=== PATIENT | female | born 1960 | race Caucasian/White ===

== ENCOUNTER → 2019-08-28 11:27 | Outpatient (BNVA) | payer BC, SELFPAY | PROVIDERS: Visit Provider Family Medicine | DX: M25.50 Pain in unspecified joint (principal); K21.9 Gastro-esophageal reflux disease without esophagitis; J45.909 Unspecified asthma, uncomplicated; F41.9 Anxiety disorder, unspecified; L72.9 Follicular cyst of the skin and subcutaneous tissue, unspecified | CPT/HCPCS: 84550; 85651; 86038; 86431 ==

== ENCOUNTER 2019-09-12 09:18 | Day surgery (SDC) | payer BC, SELFPAY ==
[2019-09-11 13:28] VITALS: BMI 32.4
[2019-09-12 09:51] VITALS: BP 149/98; PULSE 85; RESP 18; TEMP 36.6; O2SAT 96
--- NOTE | 2019-09-12 09:53 | W.PM.OPSUD ---
Surgery/Procedure H&P Update DATE OF PROCEDURE: September 12, 2019 DATE H&P PERFORMED: 09/01/19 H&P UPDATE INFORMATION: I have reviewed H&P completed within last 30 days, I have examined patient prior to procedure and No changes to prior documentation PREOP DIAGNOSIS: Skin lesion x2, screening PLANNED PROCEDURE: Operation Date: 09/12/19 10:40 Proposed Procedures p Colonoscopy 77890 [id number] Z12.11 L72.3(Not Applicable) - Kenny Wolfe MD s Excision of sebaceous cyst right shoulder x2(Right) - Kenny Wolfe MD
--- NOTE | 2019-09-12 10:04 | ANES.PREANE2 ---
Pre-Anesthetic Assessment Pre-Anesthetic Assessment: Height/Weight: Height 1.68 m Weight 91.172 kg Temp Pulse Resp BP Pulse Ox 97.9 F 85 18 149/98 96 09/12/19 09:51 09/12/19 09:51 09/12/19 09:51 09/12/19 09:51 09/12/19 09:51 Preop Diagnosis: Skin lesion x2, screening Proposed Procedure: Operation Date: 09/12/19 10:40 Proposed Procedures p Colonoscopy 10044 27150 Z12.11 L72.3(Not Applicable) - Kenny Wolfe MD s Excision of sebaceous cyst right shoulder x2(Right) - Kenny Wolfe MD Last intake: Intake Last Liquid Date 09/11/19 Last Liquid Time 23:45 Last Solid Date 09/10/19 Last Solid Time 21:35 Social: Social History: Tobacco (quit 2002) and No alcohol Exam: Pre-Anes Outpt Exam: alert, oriented x 3, clear to auscultation bilaterally and regular rate & rhythm Airway: Submandibular: WNL Cervical ROM: WNL MP: 2 Dentition: Other (teeth ok) History/ROS: No significant history except as noted Pulmonary: Pulmonary: Asthma CV/HEM: CV/HEM: None reported : : None reported Hepatic: Hepatic: None reported GI: GI: GERD Metabolic: Metabolic: None reported Musc/skel: Musc/skel: None reported Neuropsych: Neuropsych: None reported Anesthetic Plan: ASA status: 3 Anesthesia: Anesthesia Evaluation and MAC Risk of > 500 ml blood loss (7ml/kg in children): No Other Pertinent Information: PONV PFSH Anesthesia PFSH: Medical History Asthma Gastroesophageal reflux disease Surgical History H/O neck surgery History of dilatation and curettage History of excision of pilonidal cyst History of tubal ligation Hx of appendectomy Family History Father Cancer multiple myloma Mother Hypertension CAD (coronary artery disease) Denies family history of Anesthesia complication Bleeding disorder Social History Smoking and tobacco status: never smoked Alcohol intake: never Data Anesthesia Cardiac Studies: No Data to Display
[2019-09-12] MEDS: scopolamine 1.5 Patch 1 PATCH TRANSDERMA (10:06)
[2019-09-12] MEDS: sodium chloride 0.9% 1,000 ML 30 ML IV (10:12)
[2019-09-12] MEDS: lidocaine 1% INJ 20 mL IM (10:48)
--- NOTE | 2019-09-12 11:09 | PM.OP ---
Operative Report Date of procedure: September 12, 2019 Pre-op Diagnosis: Skin lesion x2, screening Post-op Findings: Sebaceous cyst right shoulder Subcutaneous mass right arm normal colonoscopy, repeat screening colonoscopy in 10 years Procedure Done: Excision sebaceous cyst right shoulder Excision subcutaneous mass right arm Colonoscopy path splenic flexure without biopsy Implants: r Specimens removed/disposition: Subcutaneous mass right arm, sebaceous cyst right shoulde Surgeon: Kenny Wolfe Anesthesia: MAC Estimated blood loss (mL): 5 Condition: stable Disposition: same day Procedure: The patient was taken to the operating room and placed in left lateral position under MAC. The right arm and right shoulder was prepped and draped in sterile manner. 1% lidocaine with 0.5% Marcaine was infiltrated around the mass. Using 15 blade 1 cm incision was made and subcutaneous lipoma was dissected free from the surrounding subcutaneous tissue and sent to pathology. Subcutaneous tissue was approximated using interrupted 3-0 Vicryl suture and skin was closed using running subcuticular 4-0 Monocryl suture surgical glue. 3 cm transverse elliptical incision was made around the punctum of the sebaceous cyst on the right shoulder. Using 15 blade the cyst was dissected free from the surrounding subcutaneous tissue. Wound was irrigated saline, hemostasis ensured and subcutaneous tissues approximated using interrupted 3-0 Vicryl suture and skin was closed using running subcuticular 4-0 Monocryl suture and surgical glue. TASHIA: Normal The colonoscopy introduced and advanced at the cecum with ileocecal valve and the epiglottis was visualized. The colonoscopy slowly withdrawn. The colon prep was good cecum: Normal Ascending colon: Normal Transverse colon: Normal Descending colon: Normal Sigmoid colon: Normal Rectum:: Normal TASHIA:: Normal
[2019-09-12 11:40] VITALS: BP 176/103; PULSE 80; RESP 18; TEMP 36.3; O2SAT 100
[2019-09-12 11:49] VITALS: BP 192/103; PULSE 82; RESP 18; O2SAT 100
[2019-09-12 12:00] VITALS: BP 127/93; PULSE 81; RESP 18; O2SAT 100
== END 2019-09-12 12:10 | disposition home or self-care (01) ==
PROVIDERS: PCP Family Medicine; Visit Provider Surgery
PROC: 0DJD8ZZ Inspection of Lower Intestinal Tract, Via Natural or Artificial Opening Endoscopic (ICD-10-PCS; CPT 45378; principal; 2019-09-12 10:30)
PROC: (CPT 11403; 2019-09-12 10:30)
DX: Z12.11 Encounter for screening for malignant neoplasm of colon (principal); L72.3 Sebaceous cyst; J45.909 Unspecified asthma, uncomplicated; K21.9 Gastro-esophageal reflux disease without esophagitis; Z82.49 Family history of ischemic heart disease and other diseases of the circulatory system
CPT/HCPCS: 11403; 12032; 12345; 45378; 88304; J2001; J2250; J2704; J3010; J3490; J7030

== ENCOUNTER → 2020-07-22 10:29 | Outpatient (BNVA) | payer OTHER, SELFPAY | PROVIDERS: PCP Family Medicine; Visit Provider Nurse Practitioner Family | DX: M25.572 Pain in left ankle and joints of left foot (principal); M67.40 Ganglion, unspecified site; M19.072 Primary osteoarthritis, left ankle and foot; M77.32 Calcaneal spur, left foot | CPT/HCPCS: 73130; 73610; 81003 ==

== ENCOUNTER → 2020-08-12 09:14 | Outpatient (BNVA) | payer OTHER, SELFPAY | PROVIDERS: PCP Family Medicine; Referring Provider Nurse Practitioner Family; Visit Provider Specialist | DX: M25.531 Pain in right wrist (principal) | CPT/HCPCS: 73110 ==

== ENCOUNTER → 2020-09-02 08:59 | Outpatient (BNVA) | payer OTHER, SELFPAY | PROVIDERS: PCP Family Medicine; Visit Provider Specialist | DX: G56.03 Carpal tunnel syndrome, bilateral upper limbs (principal) | CPT/HCPCS: 95910 ==

== ENCOUNTER 2020-10-03 13:18 | Outpatient (CLI) | payer OTHER, SELFPAY | END 2020-10-03 13:19 | disposition home or self-care (01) | LOC: SPT 13:19 | PROVIDERS: PCP Family Medicine; Visit Provider Specialist | DX: Z46.89 Encounter for fitting and adjustment of other specified devices (principal); G56.02 Carpal tunnel syndrome, left upper limb; G56.01 Carpal tunnel syndrome, right upper limb | CPT/HCPCS: L3908 ==

== ENCOUNTER → 2020-10-09 11:22 | Outpatient (BNVA) | payer OTHER, SELFPAY | PROVIDERS: PCP Family Medicine; Visit Provider Specialist | DX: Z01.812 Encounter for preprocedural laboratory examination (principal); Z11.52 Encounter for screening for COVID-19; Z20.822 Contact with and (suspected) exposure to COVID-19 | CPT/HCPCS: 87635 ==

== ENCOUNTER 2020-10-11 06:18 | Day surgery (SDC) | payer OTHER, SELFPAY ==
[2020-10-10 15:18] VITALS: BMI 32.3
[2020-10-11 06:55] VITALS: BP 170/93; PULSE 86; RESP 18; TEMP 36.4; O2SAT 97
--- NOTE | 2020-10-11 07:03 | P.HPUD_ITS ---
Surgery/Procedure H&P Update DATE OF PROCEDURE: October 11, 2020 DATE H&P PERFORMED: 10/03/20 H&P UPDATE INFORMATION: I have reviewed H&P completed within last 30 days, I have examined patient prior to procedure, No changes to prior documentation and H&P is in [facility] EMR on date indicated PREOP DIAGNOSIS: Right carpal tunnel syndrome PLANNED PROCEDURE: Operation Date: 10/11/20 08:00 Proposed Procedures p right Carpal Tunnel Release [id number] g56.00(Right) - Catarina Singh MD Related Problem List Diagnoses (1) Carpal tunnel syndrome of right wrist:
--- NOTE | 2020-10-11 07:17 | P.ANESASSM_ITS ---
Pre-Anesthetic Assessment Pre-Anesthetic Assessment: Height/Weight: Height 1.68 m Weight 90.718 kg Temp Pulse Resp BP Pulse Ox 97.6 F 86 18 170/93 97 10/11/20 06:55 10/11/20 06:55 10/11/20 06:55 10/11/20 06:55 10/11/20 06:55 Preop Diagnosis: Right carpal tunnel syndrome Proposed Procedure: Operation Date: 10/11/20 08:00 Proposed Procedures p right Carpal Tunnel Release 52859 g56.00(Right) - Catarina Singh MD Was Beta Isabella taken within 24 hours: N/A Was Clonidine taken within 24 hours: N/A Last intake: Intake Last Liquid Date 10/10/20 Last Liquid Time 23:00 Last Solid Date 10/10/20 Last Solid Time 23:00 Social: Social History: No alcohol and No tobacco Exam: Pre-Anes Outpt Exam: alert, oriented x 3, clear to auscultation bila terally and regular rate & rhythm Airway: Submandibular: WNL Cervical ROM: WNL Dentition: Full History/ROS: No significant history except as noted Pulmonary: Pulmonary: Asthma GI: GI: GERD Metabolic: Metabolic: Morbid obesity Neuropsych: Neuropsych: Anxiety Anesthetic Plan: ASA status: 2 Anesthesia: MAC and Regional (specify below) (Bailee mcmanus) Risk of > 500 ml blood loss (7ml/kg in children): No PFSH Anesthesia PFSH: Medical History Asthma Gastroesophageal reflux disease Surgical History H/O neck surgery H/O removal of cyst right arm and shoulder, lipoma removed as well 09/12/19 History of dilatation and curettage History of excision of pilonidal cyst History of tubal ligation Hx of appendectomy Status post colonoscopy (09/12/19) normal Family History Father Cancer multiple myloma Mother Hypertension CAD (coronary artery disease) Denies family history of Anesthesia complication Bleeding disorder Social History Smoking and tobacco status: former smoker Second hand smoke exposure: No Alcohol intake: never Caregiver/support person: Yes Lives independently: Yes Household members: spouse and family Marital status: service: No Current occupational status: retired History of recent travel: No Current gender identity: Female Data Anesthesia Cardiac Studies: No Data to Display
[2020-10-11] MEDS: CELEcoxib 200 mg Capsule 400 MG PO (07:49)
[2020-10-11] MEDS: acetaminophen 1,000 MG/100 ML PIGGYBACK 400 MG IV (07:49)
[2020-10-11] MEDS: sodium chloride 0.9% 1,000 ML 30 ML IV (07:49)
[2020-10-11] MEDS: vancomycin 1,000 MG in sodium chloride 0.9% 250 ML 250 MG IV (08:01)
[2020-10-11 08:55] VITALS: BP 161/134; PULSE 108; RESP 20; TEMP 36.1; O2SAT 97
[2020-10-11 09:00] VITALS: BP 166/99; PULSE 99; RESP 22; O2SAT 98
--- NOTE | 2020-10-11 09:02 | P.OP_ITS ---
Operative Report Date of procedure: October 11, 2020 Pre-op Diagnosis: Right carpal tunnel syndrome Post-op diagnosis: same Procedure Done: Right Carpal Tunnel Release Specimens removed/disposition: None Pathology: none sent Surgeon: Catarina Singh Enrollment Services Vice President: None Anesthesia: MAC (With Bailee block) Estimated blood loss (mL): 5 Tourniquet time (min): 34 Tourniquet time: At 250 mmHg IV fluids (mL): 500 Urine output (mL): 0 Urine output: No Vásquez Complications: None Findings: Hourglass deformity to the median nerve Condition: stable Disposition: PACU (Then to same-day surgery for discharge home) Brief History: This 60-year-old woman presents with complaints consistent with right carpal tu nnel syndrome. This was interfering with her activities of daily living, and after discussion, she wished to proceed with operative intervention in the form of a carpal tunnel release. Risks and complications were discussed with the patient. Consents were signed. Questions were answered. The patient was scheduled for the above procedure. Procedure: The patient was brought to the operating theater. The patient had a Bailee block with MAC. The tourniquet was elevated to 250 mmHg for a total tourniquet time of 34 minutes. The patient was also given Ancef 2 g preoperatively. The arm was then prepped and draped with DuraPrep in usual fashion with the arm draped free. A surgical pause was performed. At the time, the surgical pause, we confirmed the site and side of surgery. We also confirmed the patient's identity, appropriate and timely administration of preoperative antibiotics and preoperative surgical markings. An incision was then made along the thenar crease. The incision crossed the wrist joint in a curvilinear fashion. Dissection continued through skin and soft tissues using a scalpel. The palmaris longus was identified along with the transverse carpal ligament. Each of these was released carefully to avoid injury to the median nerve. We were able to dissect gently into the carpal canal which was noted to be quite tight with significant compression across the median nerve. The nerve was visualized and had an hourglass deformity to the median nerve with purplish discoloration. The canal was subsequently palpated to assure there was no bony encroachment upon the canal. There was a quite thickened fibrous tissue within the canal, and this was opened longitudinally as well. The canal was then palpated distally and proximally to assure that my small finger was passed easily without impingement. Finding this to be so, attention was directed to closure. The wound was irrigated with ropivacaine plain. It was then closed with 3-0 nylon in an interrupted mattress fashion. Sterile dressing was then placed consisting of Dermabond, OpSite, fluffed fluffs, sterile soft roll, a volar splint, and an Garfield wrap. The tourniquet was released after 34 minutes. There were no complications. There were no specimens. The procedure was well tolerated. Plan is the patient will be discharged home. Associated Problem List Diagnoses (1) Carpal tunnel syndrome of right wrist:
[2020-10-11 09:05] VITALS: BP 145/126; PULSE 97; RESP 20; O2SAT 97
[2020-10-11 09:10] VITALS: BP 176/97; PULSE 96; RESP 16; TEMP 36.4; O2SAT 97
[2020-10-11 09:27] VITALS: BP 160/98; PULSE 92; RESP 18; TEMP 36.5; O2SAT 96
[2020-10-11] MEDS: diphenhydrAMINE 50 mg/mL SDV 1mL 12.5 MG IVP (09:37)
--- NOTE | 2020-10-11 15:26 | ANE.PACU2 ---
Inpatient post-anesthesia follow up: Airway intact: Yes Vital signs: Temperature 97.7 F Pulse Rate 92 Respiratory Rate 18 Blood Pressure 160/98 Pulse Oximetry 96 Oxygen Delivery Me thod Room Air Oxygen Flow Rate Fraction of Inspir ed Oxygen Hydration adequate: Yes Nausea and vomiting: No Pain level: 1 Mental status: Baseline
== END 2020-10-11 10:02 | disposition home or self-care (01) ==
PROVIDERS: PCP Family Medicine; Visit Provider Specialist
PROC: (CPT 64721; principal; 2020-10-11 08:00)
DX: G56.01 Carpal tunnel syndrome, right upper limb (principal); J45.909 Unspecified asthma, uncomplicated; K21.9 Gastro-esophageal reflux disease without esophagitis; E66.01 Morbid (severe) obesity due to excess calories; Z68.32 Body mass index [BMI] 32.0-32.9, adult; F41.9 Anxiety disorder, unspecified; Z87.891 Personal history of nicotine dependence; Z79.82 Long term (current) use of aspirin
CPT/HCPCS: 64721; 96365; J1200; J2250; J2405; J2550; J2704; J3010; J3370; J3490; J7030; J7050

== ENCOUNTER → 2020-11-13 11:06 | Outpatient (BNVA) | payer OTHER, SELFPAY | PROVIDERS: PCP Family Medicine; Visit Provider Specialist | DX: G56.02 Carpal tunnel syndrome, left upper limb (principal) | CPT/HCPCS: 73110 ==

== ENCOUNTER → 2020-11-19 08:35 | Outpatient (BNVA) | payer OTHER, SELFPAY | PROVIDERS: PCP Family Medicine; Visit Provider Specialist | DX: Z20.822 Contact with and (suspected) exposure to COVID-19 (principal); G56.02 Carpal tunnel syndrome, left upper limb | CPT/HCPCS: 87635 ==

== ENCOUNTER 2020-11-22 06:32 | Day surgery (SDC) | payer OTHER, SELFPAY ==
[2020-11-22] VITALS (9 sets, daily range): BP systolic 148–167; BP diastolic 90–107; PULSE 77–97; RESP 14–27; TEMP 36.2–36.9; O2SAT 97–100; BMI 32.3
--- NOTE | 2020-11-22 06:59 | W.PM.OPSUD ---
Surgery/Procedure H&P Update DATE OF PROCEDURE: November 22, 2020 DATE H&P PERFORMED: 11/13/20 H&P UPDATE INFORMATION: I have reviewed H&P completed within last 30 days, I have examined patient prior to procedure, No changes to prior documentation and H&P is in [facility] [place] EMR on date indicated PREOP DIAGNOSIS: Left carpal tunnel syndrome PLANNED PROCEDURE: Operation Date: 11/22/20 08:10 Proposed Procedures p Carpal Tunnel Release [id number] G56.02(Left) - Catarina Singh MD Related Problem List Diagnoses (1) Carpal tunnel syndrome of left wrist:
[2020-11-22] MEDS: CELEcoxib 200 mg Capsule 400 MG PO (07:03)
[2020-11-22] MEDS: sodium chloride 0.9% 1,000 ML 30 ML IV (07:04)
[2020-11-22] MEDS: acetaminophen 1,000 MG/100 ML PIGGYBACK 400 MG IV (07:04)
--- NOTE | 2020-11-22 07:12 | ANES.PREANE2 ---
Pre-Anesthetic Assessment Pre-Anesthetic Assessment: Height/Weight: Height 1.68 m Weight 90.718 kg Temp Pulse Resp BP Pulse Ox 97.6 F 97 18 167/107 97 11/22/20 06:46 11/22/20 06:46 11/22/20 06:46 11/22/20 06:46 11/22/20 06:46 Preop Diagnosis: Left carpal tunnel syndrome Proposed Procedure: Operation Date: 11/22/20 08:10 Proposed Procedures p Carpal Tunnel Release [id number] G56.02(Left) - Catarina Singh MD Was Beta Isabella taken within 24 hours: N/A Was Clonidine taken within 24 hours: N/A Last intake: Intake Last Liquid Date 11/21/20 Last Liquid Time 23:30 Last Solid Date 11/21/20 Last Solid Time 20:30 Social: Social History: No alcohol and No tobacco Exam: Pre-Anes Outpt Exam: alert, oriented x 3, clear to auscultation bilaterally and regular rate & rhythm Airway: Submandibular: WNL Cervical ROM: WNL Dentition: Full Pulmonary: Pulmonary: Asthma GI: GI: GERD Metabolic: Metabolic: Morbid obesity Neuropsych: Neuropsych: Anxiety Anesthetic Plan: ASA status: 2 Anesthesia: MAC and Regional (specify below) (Bailee mcmanus) Risk of > 500 ml blood loss (7ml/kg in children): No Meds/Allergies Current Medications: Current Medications Generic Name Dose Route Start Last Admin Trade Name Freq PRN Reason Stop Dose Admin Sodium Chloride 1,000 mls @ 30 ml s/hr 11/22/20 06:45 11/22/20 07:04 Sodium Chloride 0.9% IV 11/23/20 06:44 30 mls/hr .Q24H ROBERT Administration PFSH Anesthesia PFSH: Medical History Asthma Gastroesophageal reflux disease Surgical History H/O neck surgery H/O removal of cyst right arm and shoulder, lipoma removed as well 09/12/19 History of dilatation and curettage History of excision of pilonidal cyst History of tubal ligation Hx of appendectomy Status post colonoscopy (09/12/19) normal Family History Father Cancer multiple myloma Mother Hypertension CAD (coronary artery disease) Denies family history of Anesthesia complication Bleeding disorder Social History Second hand smoke exposure: No Alcohol intake: never Caregiver/support person: Yes Lives independently: Yes Household members: spouse and family Marital status: service: No Current occupational status: retired History of recent travel: No Current gender identity: Female Data Anesthesia Cardiac Studies: No Data to Display
[2020-11-22] MEDS: clindamycin 600 MG/50 ML PREMIX 100 MG IV (08:08)
--- NOTE | 2020-11-22 09:07 | SUR.PHASEI ---
PT SLEEPS QUIETLY WITH GOOD RESP NOTED VSS LT HAND FINGERS PINK WARM CAP REFILL LESS THAN 3 SECONDS. ELEVATED WRIST TO CHEST.
--- NOTE | 2020-11-22 09:23 | P.OP_ITS ---
Operative Report Date of procedure: November 22, 2020 Pre-op Diagnosis: Left carpal tunnel syndrome Post-op diagnosis: same Post-op Findings: Compression across the median nerve with purplish discoloration Procedure Done: Left carpal tunnel release Specimens removed/disposition: None Pathology: none sent Surgeon: Catarina Singh Anesthesia: MAC (With Bailee block) Estimated blood loss (mL): 2 Tourniquet time (min): 33 Tourniquet time: At 250 mmHg IV fluids (mL): 400 Urine output (mL): 0 Urine output: No Vásquez Complications: None Findings: Significant compression across the carpal canal Condition: stable Disposition: PACU (Then to same-day surgery for discharge to home) Brief History: This 60-year-old woman presents with complaints consistent with left carpal tunnel syndrome. This was interfering with her activities of daily living, and after discussion, she wished to proceed with operative intervention in the form of a carpal tunnel release. Risks and complications were discussed with the patient. Consents were signed. Questions were answered. The patient was scheduled for the above procedure. Procedure: The patient was brought to the operating theater. The patient had a [place] block with MAC. The tourniquet was elevated to 250 mmHg for a total tourniquet time of 33 minutes. The patient was also given clindamycin 600 mg preoperatively. The arm was then prepped and draped with DuraPrep in usual fashion with the arm dr aped free. A surgical pause was performed. At the time, the surgical pause, we confirmed the site and side of surgery. We also confirmed the patient's identity, appropriate and timely administration of preoperative antibiotics and preoperative surgical markings. An incision was then made along the thenar crease. The incision crossed the wrist joint in a curvilinear fashion. Dissection continued through skin and soft tissues using a scalpel. The palmaris longus was identified along with the transverse carpal ligament. Each of these was released carefully to avoid injury to the median nerve. We were able to dissect gently into the carpal canal which was noted to be quite tight with significant compression across the median nerve. The nerve was visualized and had an hourglass deformity to the median nerve with purplish discoloration. The canal was subsequently palpated to assure there was no bony encroachment upon the canal. There was a quite thickened fibrous tissue within the canal, and this was opened longitudinally as well. The canal was then palpated distally and proximally to assure that my small finger was passed easily without impingement. Finding this to be so, attention was directed to closure. The wound was irrigated with ropivacaine plain. It was then closed with 3-0 nylon in an interrupted mattress fashion. Sterile dressing was then placed consisting of Dermabond, OpSite, fluffed fluffs, sterile soft roll, a volar splint, and an Garfield wrap. The tourniquet was released after 33 minutes. There were no complications. There were no specimens. The procedure was well debbie erated. Plan is the patient will be discharged home. Associated Problem List Diagnoses (1) Carpal tunnel syndrome of left wrist:
[2020-11-22] MEDS: HYDROcodone-acetaminophen 5-325 mg Tablet 1 TAB PO (10:00)
--- NOTE | 2020-11-22 14:44 | ANE.PACU2 ---
Inpatient post-anesthesia follow up: Airway intact: Yes Vital signs: Temperature 98.2 F Pulse Rate 78 Respiratory Rate 18 Blood Pressure 148/98 Pulse Oximetry 98 Oxygen Delivery Me thod Room Air Oxygen Flow Rate 6 Fraction of Inspir ed Oxygen Hydration adequate: Yes Nausea and vomiting: No Pain level: 1 Mental status: Baseline
== END 2020-11-22 10:20 | disposition home or self-care (01) ==
PROVIDERS: PCP Family Medicine; Visit Provider Specialist
PROC: (CPT 64721; principal; 2020-11-22 08:10)
DX: G56.02 Carpal tunnel syndrome, left upper limb (principal); J45.909 Unspecified asthma, uncomplicated; K21.9 Gastro-esophageal reflux disease without esophagitis; E66.01 Morbid (severe) obesity due to excess calories; Z68.32 Body mass index [BMI] 32.0-32.9, adult
CPT/HCPCS: 64721; 96365; J3010; J3490; J7030

== ENCOUNTER → 2021-04-07 17:30 | Outpatient (BNVA) | payer OTHER, SELFPAY | PROVIDERS: PCP Family Medicine; Visit Provider Family Medicine | DX: Z00.00 Encounter for general adult medical examination without abnormal findings (principal); K21.9 Gastro-esophageal reflux disease without esophagitis; M25.50 Pain in unspecified joint; Z83.438 Family history of other disorder of lipoprotein metabolism and other lipidemia | CPT/HCPCS: 80053; 80061; 83735; 84443; 85025 ==

== ENCOUNTER → 2021-11-26 16:17 | Outpatient (BNVA) | payer OTHER, MEDICAID, SELFPAY | PROVIDERS: PCP Family Medicine; Visit Provider Family Medicine | DX: M54.50 Low back pain, unspecified (principal); M53.3 Sacrococcygeal disorders, not elsewhere classified; F41.9 Anxiety disorder, unspecified | CPT/HCPCS: 81000 ==

== ENCOUNTER → 2022-01-08 16:38 | Outpatient (BNVA) | payer OTHER, MEDICAID, SELFPAY | PROVIDERS: PCP Family Medicine; Visit Provider Family Medicine | DX: I10 Essential (primary) hypertension (principal) | CPT/HCPCS: 80053; 80061; 84443; 85025 ==

== ENCOUNTER 2022-01-13 06:00 | Outpatient (RCR) | payer OTHER, MEDICAID, SELFPAY | END 2022-02-09 23:59 | disposition home or self-care (01) | LOC: TPT 06:00 | PROVIDERS: PCP Family Medicine; Visit Provider Family Medicine | DX: M53.3 Sacrococcygeal disorders, not elsewhere classified (principal) | CPT/HCPCS: 97110; 97163 ==

== ENCOUNTER → 2022-01-19 15:36 | Outpatient (BNVA) | payer OTHER, MEDICAID, SELFPAY | PROVIDERS: PCP Family Medicine; Visit Provider Family Medicine | DX: R79.89 Other specified abnormal findings of blood chemistry (principal) | CPT/HCPCS: 84439; 84443; 84481 ==

== ENCOUNTER → 2022-11-23 09:10 | Outpatient (BNVA) | payer OTHER, MEDICAID, SELFPAY | PROVIDERS: PCP Family Medicine; Visit Provider Surgery | DX: K21.9 Gastro-esophageal reflux disease without esophagitis (principal) | CPT/HCPCS: 99203; 99214 ==

== ENCOUNTER → 2022-12-08 11:10 | Outpatient (BNVA) | payer MEDICAID, SELFPAY | PROVIDERS: PCP Family Medicine; Visit Provider Family Medicine | DX: E53.8 Deficiency of other specified B group vitamins (principal); Z12.39 Encounter for other screening for malignant neoplasm of breast; E55.9 Vitamin D deficiency, unspecified; R53.83 Other fatigue; E78.5 Hyperlipidemia, unspecified | CPT/HCPCS: 80053; 80061; 82306; 82607; 83735; 84443; 85025 ==

== ENCOUNTER → 2022-12-18 11:28 | Outpatient (BNVA) | payer MEDICAID, SELFPAY | PROVIDERS: PCP Family Medicine; Visit Provider Family Medicine | DX: Z12.4 Encounter for screening for malignant neoplasm of cervix | CPT/HCPCS: 88175 ==

== ENCOUNTER 2022-12-25 06:13 | Day surgery (SDC) | payer MEDICAID, SELFPAY ==
[2022-12-23 14:27] VITALS: BMI 34.2
[2022-12-25 06:28] VITALS: BP 143/92; PULSE 98; RESP 16; TEMP 35.9; O2SAT 95
--- NOTE | 2022-12-25 06:35 | W.PM.OPSFHP ---
Same Day Surgery H&P Indication for Procedure/HPI DATE OF PROCEDURE: December 25, 2022 CHIEF COMPLAINT/INDICATIONFOR SURGICAL PROCEDURE: Nausea and abdominal pain PREOP DIAGNOSIS: GERD PLANNED PROCEDURE: Operation Date: 12/25/22 07:50 Proposed Procedures p EGD 38232,K21.9(Not Applicable) - Maxx Thomas MD Medications/Allergies* Home Medications Medication Instructions Recorded Confirmed Type diphenhydramine HCl 25 mg capsule 25 mg PO QPM 08/28/19 12/25/22 History (Benadryl) magnesium 250 mg tablet 750 mg PO DAILY 08/28/19 12/25/22 History zinc 50 mg tablet 50 mg PO DAILY 08/28/19 12/25/22 History omega-3 fatty acids 1,000 mg 1,000 mg PO DAILY 09/02/20 12/25/22 History capsule (Fish Oil Concentrate) atorvastatin 40 mg tablet 40 mg PO DAILY 12/23/22 12/25/22 History sucralfate 1 gram tablet (Carafate) 1 g PO Q6H PRN Gastric Reflux 12/23/22 12/25/22 History trazodone 100 mg tablet 100 mg PO QPM 12/23/22 12/25/22 History triamterene 37.5 1 tab PO DAILY 12/23/22 12/25/22 History mg-hydrochlorothiazide 25 mg tablet Allergies/Adverse Reactions Allergy/AdvReac Type Severity Reaction Status Date / Time Penicillins Allergy Severe edema/hives Verified 12/18/22 09:59 Sulfa (Sulfonamide Allergy Severe edema/hives Verified 12/18/22 09:59 Antibiotics) vancomycin Allergy Severe Hives, Verified 12/18/22 09:59 welts Cephalosporins Allergy Intermediate ALGY-Rash Verified 12/18/22 09:59 Pertinent History/Comorbid Conditions* Medical History (Updated 12/18/22 @ 11:21 by Hailey Dill MD) Asthma Gastroesophageal reflux disease Surgical History (Updated 09/27/19 @ 01:32 by Kenny Wolfe MD) H/O neck surgery H/O removal of cyst right arm and shoulder, lipoma removed as well 09/12/19 History of dilatation and curettage History of excision of pilonidal cyst History of tubal ligation Hx of appendectomy Status post colonoscopy (09/12/19) normal Family History (Updated 09/01/19 @ 09:59 by Larisa Mckeon RN) CAD (coronary artery disease) Mother Cancer Father multiple myloma Hypertension Mother Denies family history of Anesthesia complication Bleeding disorder Social History Smoking and tobacco status: former smoker Second hand smoke exposure: No Alcohol intake: never Substance/Drug Use: never Caregiver/support person: Yes Lives independently: Yes Household members: spouse and family Marital status: service: No Current occupational status: retired Current gender identity: Female Pertinent Exam Findings alert, oriented x 3, clear to auscultation bilaterally and regular rate & rhythm Recommendations Surgery/Procedure today Coding Level of Care Code Acute Code for Chg Fwd Diagnoses
[2022-12-25] MEDS: sodium chloride 0.9% 1,000 ML 30 ML IV (06:42)
--- NOTE | 2022-12-25 07:02 | ANES.PREANE2 ---
Pre-Anesthetic Assessment Height/Weight: Height 1.68 m Weight 96.162 kg Temp Pulse Resp BP Pulse Ox O2 Del Method 96.7 F L 98 16 143/92 95 Room Air 12/25/22 06:28 12/25/22 06:28 12/25/22 06:28 12/25/22 06:28 12/25/22 06:28 12/25/22 06:28 Preop Diagnosis: GERD Operation Date: 12/25/22 07:50 Proposed Procedures p EGD 59092,K21.9(Not Applicable) - Maxx Thomas MD Familial anesthetic complications: None Was Beta Isabella taken within 24 hours: N/A Was Clonidine taken within 24 hours: N/A Last intake: Intake Last Liquid Date 12/24/22 Last Liquid Time 23:00 Last Solid Date 12/24/22 Last Solid Time 23:00 Social No alcohol and No tobacco Exam alert, oriented x 3, clear to auscultation bilaterally and regular rate & rhythm Airway Submandibular: within normal limits Cervical ROM: within normal limits (previous 3 level fusion, Normal ROM) Mallampati: Class III Dentition: full History/ROS No significant history except as noted Pulmonary Asthma CV/HEM Hypertension None reported Hepatic None reported GI Gastroesophageal Reflux Disease Metabolic Thyroid Disease [facility] [place] None reported Neuropsych None reported Anesthetic Plan ASA status: 2 Anesthesia: Anesthesia Evaluation and MAC Risk of > 500 ml blood loss (7ml/kg in children): No Medications/Allergies Home Medications Medication Instructions Recorded Confirmed Last Taken Type diphenhydramine HCl 25 mg capsule 25 mg PO QPM 08/28/19 12/25/22 12/24/22 History (Benadryl) magnesium 250 mg tablet 750 mg PO DAILY 08/28/19 12/25/22 12/24/22 History zinc 50 mg tablet 50 mg PO DAILY 08/28/19 12/25/22 12/24/22 History omega-3 fatty acids 1,000 mg 1,000 mg PO DAILY 09/02/20 12/25/22 12/24/22 History capsule (Fish Oil Concentrate) buspirone 15 mg tablet 15 mg PO TID #90 tabs 12/08/22 12/25/22 12/24/22 Rx coenzyme Q10 30 mg capsule (Co 30 mg PO DAILY #30 caps 12/08/22 12/25/22 12/24/22 Rx Q-10) dexlansoprazole 60 mg 60 mg PO DAILY #30 caps 12/08/22 12/25/22 12/24/22 Rx capsule,biphase delayed release (Dexilant) diclofenac sodium 75 mg 75 mg PO BID PRN pain #60 tabs 12/08/22 12/25/22 12/24/22 Rx tablet,delayed release duloxetine 30 mg capsule,delayed 30 mg PO DAILY #30 caps 12/08/22 12/25/22 12/24/22 Rx release (Cymbalta) valsartan 320 mg tablet (Diovan) 320 mg PO DAILY #30 tabs 12/08/22 12/25/22 12/24/22 Rx fexofenadine 60 mg-pseudoephedrine 1 tab PO Q12H PRN allergy symptoms 12/18/22 12/25/22 12/24/22 Rx ER 120 mg tablet,ext.release,12 hr #30 tabs (Vilma-D 12 Hour) levothyroxine 50 mcg tablet 50 mcg PO DAILY #30 tabs 12/18/22 12/25/22 12/24/22 Rx atorvastatin 40 mg tablet 40 mg PO DAILY 12/23/22 12/25/22 12/24/22 History sucralfate 1 gram tablet (Carafate) 1 g PO Q6H PRN Gastric Reflux 12/23/22 12/25/22 12/24/22 History trazodone 100 mg tablet 100 mg PO QPM 12/23/22 12/25/22 12/24/22 History triamterene 37.5 1 tab PO DAILY 12/23/22 12/25/22 12/24/22 History mg-hydrochlorothiazide 25 mg tablet Allergies Allergy/AdvReac Type Severity Reaction Status Date / Time Penicillins Allergy Severe edema/hives Verified 12/18/22 09:59 Sulfa (Sulfonamide Allergy Severe edema/hives Verified 12/18/22 09:59 Antibiotics) vancomycin Allergy Severe Hives, Verified 12/18/22 09:59 welts Cephalosporins Allergy Intermediate ALGY-Rash Verified 12/18/22 09:59 Current Medications Generic Name Dose Route Start Last Admin Trade Name Freq PRN Reason Stop Dose Admin Sodium Chloride 1,000 mls @ 30 mls/hr 12/25/22 06:30 12/25/22 06:42 Sodium Chloride 0.9% IV 12/26/22 06:29 30 mls/hr .Q24H ROBERT Administration PFSH Anesthesia Medical History Asthma Gastroesophageal reflux disease Surgical History H/O neck surgery H/O removal of cyst right arm and shoulder, lipoma removed as well 09/12/19 History of dilatation and curettage History of excision of pilonidal cyst History of tubal ligation Hx of appendectomy Status post colonoscopy (09/12/19) normal Family History Father Cancer multiple myloma Mother Hypertension CAD (coronary artery disease) Denies family history of Anesthesia complication Bleeding disorder Social History Smoking and tobacco status: former smoker Second hand smoke exposure: No Alcohol intake: never Substance/Drug Use: never Caregiver/support person: Yes Lives independently: Yes Household members: spouse and family Marital status: service: No Current occupational status: retired Current gender identity: Female Female Reproductive History Para: 2 Spontaneous abortions: Yes Date of menopause: 09/29/19 Data Anesthesia Cardiac Studies: No Data to Display
[2022-12-25 07:49] VITALS: BP 133/72; PULSE 80; RESP 18; TEMP 36.5; O2SAT 96
[2022-12-25 08:05] VITALS: BP 130/83; PULSE 80; RESP 16; O2SAT 94
--- NOTE | 2022-12-25 12:47 | ANE.PACU2 ---
Inpatient post-anesthesia follow up: Airway intact: Yes Vital signs: Temperature 97.7 F Pulse Rate 80 Respiratory Rate 16 Blood Pressure 130/83 Pulse Oximetry 94 Oxygen Delivery Me thod Room Air Oxygen Flow Rate Fraction of Inspir ed Oxygen Hydration adequate: Yes Nausea and vomiting: No Pain level: 2 Mental status: Baseline
== END 2022-12-25 08:21 | disposition home or self-care (01) ==
PROVIDERS: PCP Family Medicine; Visit Provider Surgery
PROC: 0DJ08ZZ Inspection of Upper Intestinal Tract, Via Natural or Artificial Opening Endoscopic (ICD-10-PCS; CPT 43235; principal; 2022-12-25 07:50)
DX: K21.9 Gastro-esophageal reflux disease without esophagitis (principal); Z87.891 Personal history of nicotine dependence; K22.70 Barrett's esophagus without dysplasia; L53.9 Erythematous condition, unspecified; K29.70 Gastritis, unspecified, without bleeding; K29.80 Duodenitis without bleeding; I10 Essential (primary) hypertension
CPT/HCPCS: 43239; 88305; 88342; J2704; J7030

== ENCOUNTER → 2023-01-26 11:54 | Outpatient (BNVA) | payer MEDICAID, SELFPAY | PROVIDERS: PCP Family Medicine; Visit Provider Family Medicine | DX: R05.9 Cough, unspecified (principal); R09.81 Nasal congestion; E03.9 Hypothyroidism, unspecified; Z20.822 Contact with and (suspected) exposure to COVID-19 | CPT/HCPCS: 84443; 87426 ==

== ENCOUNTER → 2023-05-27 10:14 | Outpatient (BNVA) | payer MEDICAID, SELFPAY | PROVIDERS: PCP Family Medicine; Visit Provider Family Medicine | DX: R30.0 Dysuria (principal) | CPT/HCPCS: 81000 ==

== ENCOUNTER → 2023-06-14 16:34 | Outpatient (BNVA) | payer MEDICAID, SELFPAY | PROVIDERS: PCP Family Medicine; Visit Provider Family Medicine | DX: R05.9 Cough, unspecified (principal); R30.0 Dysuria | CPT/HCPCS: 81000; 87400 ==

== ENCOUNTER → 2023-09-27 14:42 | Outpatient (BNVA) | payer MEDICAID, SELFPAY | PROVIDERS: PCP Family Medicine; Visit Provider Family Medicine | DX: R35.0 Frequency of micturition (principal); I10 Essential (primary) hypertension; E78.5 Hyperlipidemia, unspecified; E03.9 Hypothyroidism, unspecified; R25.2 Cramp and spasm | CPT/HCPCS: 80053; 80061; 81000; 84443; 85025 ==